=== PATIENT | female | born 1940 | race Two or more races ===

== ENCOUNTER 2022-05-19 14:50 | Inpatient (IN) | payer MEDICARE, MEDICAID ==
[~2022-05-19] VITALS: Ht 167.6 cm; Wt 90.3 kg
[2022-05-19] MEDS ORDERED: LIPITOR (15:04)
[2022-05-19 16:31] LABS: BASOPHILS % 0.6 % (0.0-2.0); EOSINOPHILS % 4.1 % (0.0-5.0); HEMATOCRIT. 39.2 % (36.0-48.0); HEMOGLOBIN. 13.5 g/dL (12.0-16.0); LYMPHOCYTES % 28.2 % (20.0-50.0); MEAN CORPUSCULAR HEMOGLOBIN 29.9 pg (28.0-32.0); MEAN CORPUSCULAR VOLUME 87.1 fL (81.0-99.0); MEAN PLATELET VOLUME 9.8 fl (7.4-10.4); MONOCYTES % 7.1 % (2.0-8.0); PLATELET 191 x1000/uL (130-400)
[2022-05-19 16:40] LABS: CHLORIDE 106 mEq/L (98-107)
[2022-05-19 16:45] LABS: PROTHROMBIN TIME 11.1 sec (9.6-11.0)
[2022-05-19] MEDS ORDERED: ASPIRIN 325MG EC TABLET PO ONE (17:00)
[2022-05-19] MEDS ORDERED: IOHEXOL-350 100 ML BOTTLE ONE (20:37)
[2022-05-19 23:00] VITALS: BP 158/90
[2022-05-20] VITALS (7 sets, daily range): BP systolic 90–149; BP diastolic 50–88
[2022-05-20] MEDS ORDERED: HYDRALAZINE 20MG/ML VIAL IV PRN (00:45)
[2022-05-20] MEDS: ACETAMINOPHEN 325MG TABLET PO PRN (02:05)
[2022-05-20] MEDS: SODIUM CHLORIDE 0.9% 1,000 ML IV SCH ×2 (02:50→17:53)
[2022-05-20 06:41] LABS: BASOPHILS % 0.8 % (0.0-2.0); HEMATOCRIT. 44.8 % (36.0-48.0); HEMOGLOBIN. 14.7 g/dL (12.0-16.0); LYMPHOCYTES % 24.1 % (20.0-50.0); MEAN CORPUSCULAR HEMOGLOBIN 28.6 pg (28.0-32.0); MEAN CORPUSCULAR VOLUME 87.4 fL (81.0-99.0); MONOCYTES % 7.3 % (2.0-8.0); NEUTROPHILS % 64.8 % (40.0-76.0); RED BLOOD CELL COUNT 5.13 mill/uL (4.2-5.4); RED CELL DISTRIBUTION WIDTH 15.3 % (11.6-14.6)
[2022-05-20 06:59] LABS: CHLORIDE 106 mEq/L (98-107)
[2022-05-20 07:12] LABS: HDL CHOLESTEROL 71 mg/dL (40-59); LDL CHOLESTEROL 69 mg/dL (5-100)
[2022-05-20] MEDS: ENOXAPARIN 30MG/0.3ML SYR SUBCUT SCH ×2 (09:35→20:58)
[2022-05-20] MEDS: OXYBUTYNIN CHLORIDE 5MG TABLET PO SCH ×2 (09:35→17:52)
[2022-05-20] MEDS: ASPIRIN 81MG TABLET PO SCH (09:35)
[2022-05-20] MEDS: CLOPIDOGREL 75MG TABLET PO SCH (20:57)
[2022-05-20] MEDS ORDERED: ATORVASTATIN CALCIUM 10MG TABLET PO SCH (21:00)
[2022-05-21] VITALS: BP 111/68
[2022-05-21] MEDS: SODIUM CHLORIDE 0.9% 1,000 ML IV SCH (03:25)
[2022-05-21 04:00] VITALS: BP 134/80
[2022-05-21 08:00] VITALS: BP 125/75
[2022-05-21] MEDS: OXYBUTYNIN CHLORIDE 5MG TABLET PO SCH (08:23)
[2022-05-21] MEDS: ACETAMINOPHEN 325MG TABLET PO PRN (08:23)
[2022-05-21] MEDS: ENOXAPARIN 30MG/0.3ML SYR SUBCUT SCH (08:23)
[2022-05-21] MEDS: CLOPIDOGREL 75MG TABLET PO SCH (08:24)
[2022-05-21] MEDS: ASPIRIN 81MG TABLET PO SCH (08:24)
[2022-05-21 12:00] VITALS: BP 133/72
[2022-05-21] MEDS ORDERED: CLOP75TA15 PO (15:30)
[2022-05-21] MEDS ORDERED: ATOR10TA PO (15:30)
[2022-05-21] MEDS ORDERED: ASPI-1160 PO (15:30)
[2022-05-21 16:00] VITALS: BP 126/79
[2022-05-21 17:22] VITALS: BP 126/77
== END 2022-05-21 19:34 | disposition home or self-care (01) | DRG 103 ==
LOC: ER 14:55 → 6WST 18:49 → EDBEDREQ 18:53 → ENRESERV 21:59 → CANRESERV 21:59 → ENRESERV 22:39
PROVIDERS: ADMIT Internal Medicine; ATTEND Internal Medicine
DX: G43.909 Migraine, unspecified, not intractable, without status migrainosus (principal); G45.9 Transient cerebral ischemic attack, unspecified; R29.700 NIHSS score 0; H54.3 Unqualified visual loss, both eyes; E78.00 Pure hypercholesterolemia, unspecified; Z88.0 Allergy status to penicillin
CPT/HCPCS: 36415; 70496; 70498; 70551; 71045; 80048; 80053; 80061; 82962; 83036; 84443; 84484; 85025; 86850; 86900; 93005; 93306; 97162; 97166; 99291; J1650; J7030; Q9967